=== PATIENT | female | born 1950 | race Caucasian/White ===

== ENCOUNTER 2017-07-08 05:09 | Observation (INO) | payer OTHER ==
[~2017-07-08] VITALS: Ht 157.5 cm; Wt 71.0 kg
[~2017-07-08 05:09] MED LIST: ALPR1TAB3 PO; LEVO88TA2 PO; METF500T PO
[2017-07-08] MEDS ORDERED: CHLORHEXIDINE GLUCONATE 2 % 1 PACK (2 CLOTHS) TOPICAL PRN (05:45)
[2017-07-08] MEDS ORDERED: SODIUM CHLORIDE FLUSH PRN IV FLUSH (05:45)
[2017-07-08] MEDS ORDERED: LACTATED RINGER'S 1000 ML IV PRN (05:45)
[2017-07-08] MEDS ORDERED: METOPROLOL TARTRATE 25 MG TAB PO PRN (05:45)
[2017-07-08] MEDS ORDERED: POVIDONE IODINE 5% (ANTISEPSIS KIT) 4 APPLICATIONS EACH NARE PRN (05:45)
[2017-07-08] MEDS ORDERED: HEPARIN SODIUM - SQ 10,000 UNITS/ML VIAL SQ PRN (05:45)
[2017-07-08] MEDS ORDERED: SODIUM CHLORID 0.9% 500 ML IV PRN (05:45)
[2017-07-08] MEDS ORDERED: ceFAZolin 1,000 MG/NS 100 ML IV SCH ×2 (05:45)
[2017-07-08] MEDS ORDERED: INSULIN HUMAN REGULAR 1,000 UNITS/10 ML VIAL SQ PRN (05:45)
[2017-07-08 06:03] VITALS: BP 145/65; PULSE 78; RESP 16; TEMP 98.1; O2SAT 99
[2017-07-08] MEDS ORDERED: LIDOCAINE 1%/EPINEPHrine 1:100,000 SOLN 30 ML VIAL INFIL ONE (08:13)
--- NOTE | 2017-07-08 08:56 | EKG ---
Date Performed: 07/08/2017 Time Performed: 06:12:19 PTAGE: 67 years EKG: Sinus rhythm INDETERMINATE AXIS POSSIBLE RIGHT VENTRICULAR CONDUCTION DELAY ST DEVIATION AND MODERATE T-WAVE ABNO RMALITY, CONSIDER ANTEROLATERAL ISCHEMIA ABNORMAL ECG NO PREVIOUS TRACING DOCTOR: Misael Edmondson Interpretating Date/Time 07/08/2017 08:53:12
[2017-07-08] MEDS ORDERED: SODIUM CHLORIDE FLUSH BID IV FLUSH SCH (09:00)
[2017-07-08] MEDS ORDERED: SILVER NITR/POTASSIUM NITRATE APPLICATORS TOPICAL ONE (10:49)
[2017-07-08] MEDS ORDERED: SUGAMMADEX SODIUM 200 MG/2 ML VIAL IV PUSH ONE ×2 (10:51)
[2017-07-08] MEDS: D5-1/2 NS + KCL 20 MEQ INJ 1,000 ML IV SCH ×2 (10:58→20:05)
[2017-07-08] MEDS ORDERED: diphenhydrAMINE HCL 25 MG CAP PO PRN (11:00)
[2017-07-08] MEDS ORDERED: ALPRAZolam 1 MG TAB PO PRN (11:00)
[2017-07-08] MEDS: INSULIN NovoLIN REGULAR SUPPLEMENTAL SCALE SQ SCH ×3 (11:00→20:05)
[2017-07-08] MEDS ORDERED: ONDANSETRON HCL 4 MG/2 ML VIAL IVP PRN (11:00)
[2017-07-08] MEDS ORDERED: SODIUM CHLORIDE 0.9% FLUSH 10 ML FLUSH IV FLUSH PRN (11:00)
[2017-07-08] MEDS ORDERED: DO NOT ADM ANY ANTICOAGULANT DRUGS PRN (11:19)
[2017-07-08] MEDS ORDERED: fentaNYL CITRATE 250 MCG/5 ML AMP ONE (11:21)
[2017-07-08] MEDS ORDERED: MIDAZOLAM HCL 2 MG/2 ML VIAL ONE (11:22)
[2017-07-08] MEDS ORDERED: NORMOSOL R INJ 1,000 ML IV ONE (12:00)
[2017-07-08] MEDS ORDERED: DEXTROSE 50% IN WATER 50 ML VIAL(D50) IV PUSH PRN (12:00)
[2017-07-08] MEDS ORDERED: ONDANSETRON HCL 4 MG/2 ML VIAL IV PUSH ONE (12:00)
[2017-07-08] MEDS ORDERED: LACTATED RINGER'S 1000 ML INJ 1,000 ML IV ONE (12:00)
[2017-07-08] MEDS ORDERED: PROPOFOL 200 MG/20 ML AMP IV ONE (12:00)
[2017-07-08] MEDS: KETOROLAC TROMETHAMINE 30 MG/ML (IVP) VIAL IVP SCH ×2 (12:00→20:04)
[2017-07-08] MEDS ORDERED: PHENYLEPH/NS 1000 MCG/10 ML SYR IV ONE (12:00)
[2017-07-08] MEDS ORDERED: GLUCAGON 1 MG/ML VIAL OTHER PRN (12:00)
[2017-07-08] MEDS ORDERED: DIMETHICONE/OXYBENZONE/PADMIATE LIP BALM 4.25 GM TOPICAL ONE (13:32)
--- NOTE | 2017-07-08 16:15 | PD.ONC.PN ---
Subjective Subjective Remarks post op note pt seen in PACU awaiting a bed on [address] mild nausea, pain controlled no complaints Objective Data Date Time Temp Pulse Resp B/P Pulse Ox O2 Delivery O2 Flow Rate FiO2 07/08/17 16:00 88 10 128/61 96 Room Air 07/08/17 15:00 88 17 136/60 92 Nasal Cannula 2 07/08/17 13:30 93 17 122/57 95 Nasal Cannula 2 07/08/17 13:00 88 11 126/61 97 Nasal Cannula 2 07/08/17 12:30 88 12 132/61 96 Nasal Cannula 2 07/08/17 12:00 88 11 128/59 95 Nasal Cannula 2 07/08/17 11:45 86 12 134/65 95 Nasal Cannula 2 07/08/17 11:30 92 12 135/63 95 Nasal Cannula 2 07/08/17 11:15 97.8 97 14 145/70 97 Nasal Cannula 4 07/08/17 06:03 98.1 78 16 145/65 99 07/08/17 07/08/17 07/08/17 07:00 15:00 23:00 Intake Total 1700 ml Output Total 350 ml Balance 1350 ml Laboratory Results Laboratory Tests Test 07/08/17 06:15 Blood Type B POSITIVE Antibody Screen NEGATIVE Blood Bank Comment Administered Medications Medications (Trade) Dose Ordered Sig/Harris Route PRN Reason Start Time Stop Time Status Last Admin Dose Admin Potassium Chloride/Dextrose/ Sod Cl (D5-1/2 NS + KCl 20 Meq Inj) 1,000 ml @ 75 mls/hr [id number] IV 07/08/17 10:58 07/08/17 10:58 Ketorolac Tromethamine (Toradol Inj) 15 mg Q6HR IVP 07/08/17 12:00 07/09/17 06:01 07/08/17 12:00 Objective Remarks GENERAL: Well-nourished, well-developed patient. SKIN: Warm and dry. HEAD: Normocephalic. EYES: No scleral icterus. No injection or drainage. CARDIOVASCULAR: Regular rate and rhythm without murmurs. RESPIRATORY: Breath sounds equal bilaterally. No accessory muscle use. GASTROINTESTINAL: Abdomen soft, SS are c/d/i EXTREMITIES: TEDs MUSCULOSKELETAL: Adequate muscle tone. PSYCHIATRIC: Appropriate mood and affect; insight and judgment normal. Assessment/Plan Problem List: (1) Post-operative state Plan: s/p RA lap hyst with BSO and lymph node dissection Pt to be transferred to [facility] post op orders in chart ADAT can get OOB to chair eder Singleton to straight drain D/C Areli in AM anticipate discharge home in morning Chris Miller Jul 08, 2017 16:15
[2017-07-08 19:00] VITALS: BP 152/69; PULSE 91; RESP 16; TEMP 99.9; O2SAT 97
[2017-07-08] MEDS: SODIUM CHLORIDE 0.9% FLUSH 10 ML FLUSH IV FLUSH SCH (20:05)
[2017-07-08 21:05] VITALS: O2SAT 97
[2017-07-09] VITALS: BP 149/63; PULSE 93; RESP 16; TEMP 99.1; O2SAT 98
[2017-07-09] MEDS: KETOROLAC TROMETHAMINE 30 MG/ML (IVP) VIAL IVP SCH ×2 (00:43→06:07)
[2017-07-09 04:00] VITALS: BP 153/70; PULSE 86; RESP 16; TEMP 98.6; O2SAT 98
[2017-07-09] MEDS ORDERED: LEVOTHYROXINE SODIUM 88 MCG TAB PO SCH (06:00)
[2017-07-09] MEDS: INSULIN NovoLIN REGULAR SUPPLEMENTAL SCALE SQ SCH (06:07)
[2017-07-09 08:00] VITALS: BP 140/64; PULSE 88; RESP 16; TEMP 98.8; O2SAT 98
[2017-07-09] MEDS: SODIUM CHLORIDE 0.9% FLUSH 10 ML FLUSH IV FLUSH SCH (09:00)
[2017-07-09 09:09] LABS: AUTOMATED NEUTROPHIL # 8.4 TH/MM3 (1.8-7.7); BASOPHIL % 0.2 % (0.0-2.0); HEMATOCRIT 37.2 % (35.0-46.0); HEMO FLAGS DIFF FINAL; LYMPH % 10.2 % (9.0-44.0); MEAN CELL VOLUME 93.4 FL (80.0-100.0); MEAN CORPUSCULAR HEMOGLOBIN 32.4 PG (27.0-34.0); MEAN CORPUSCULAR HGB CONC 34.7 % (32.0-36.0); MONO % 6.3 % (0.0-8.0); NEUT % 83.3 % (16.0-70.0); PLATELET COUNT 206 TH/MM3 (150-450); RED BLOOD COUNT 3.99 MIL/MM3 (4.00-5.30); RED CELL DISTRIBUTION WIDTH 13.9 % (11.6-17.2); WHITE BLOOD COUNT 10.1 TH/MM3 (4.0-11.0)
[2017-07-09 09:25] LABS: BICARBONATE 24.8 MEQ/L (21.0-32.0); POTASSIUM 3.2 MEQ/L (3.5-5.1)
[2017-07-09 11:15] VITALS: BP 151/74; PULSE 90; RESP 20; TEMP 98.3; O2SAT 97
--- NOTE | 2017-07-09 15:26 | MP ---
cc: GUILLE SALINAS M.D., KELLY L. MD RAO, SURYA P. MD PECK, REBECCA (. M.D. DATE OF SURGERY: 07/08/2017 PREOPERATIVE DIAGNOSIS Endometrial cancer. POSTOPERATIVE DIAGNOSIS Endometrial cancer. PROCEDURE Robotic-assisted laparoscopic hysterectomy, bilateral salpingo-oophorectomy, bilateral pelvic lymphadenectomy. SURGEON Amy Wolf. 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 ANESTHESIA General endotracheal. ESTIMATED BLOOD LOSS 100 cc. IV FLUIDS 1600 cc. URINE OUTPUT 250 cc. HISTORY A 67-year-old female with postmenopausal bleeding. Imaging showed the endometrial stripe to be just slightly prominent at 6 mm. She underwent sampling which was interpreted initially as an intermediate grade adenocarcinoma felt to be high-grade by the [place] pathologist. She was counseled regarding these findings and was in favor of surgical management, favor of a minimally invasive approach and presents now for that endeavor. She is seen in the pre-op holding area where updated pathology review is discussed with her. Recommendations and plan of surgical care were reviewed. She expressed good understanding and agreed to move forward with surgery. FINDINGS The uterus sounded to 7.5 cm symmetrically and grossly normal. Tubes and ovaries grossly appeared normal. The left tube and ovary were affixed to the left pelvic sidewall. There were adhesions in the cul-de-sac and the colon was adherent overlying the left adnexa. Changes suggesting prior diverticulitis and some diverticulum were noted. No active inflammation. The right tube and ovary had minimal adhesions. There were several prominent lymph nodes in both the right and left pelvis. There were no appreciably prominent lymph nodes in the paraaortic region. The peritoneal surfaces were smooth. The liver and diaphragm edges, large and small bowel mesentery grossly appeared normal without peritoneal implants. The preliminary pathology of the uterus showed a 2 cm tumor that invaded more than 50% depth of the myometrium with an estimated 8 mm invasion out of a 12 mm myometrium. There was no endocervical extension. It is noted that she had markedly redundant large and small bowel that contributed some challenges with visibility and access, although the bowel itself otherwise looked reasonably normal. STATEMENT OF COMPLEXITY/MODIFIER The complexly of this case was increased due to dense pelvic adhesions against the left pelvic sidewall requiring significant additional time in taking down adhesions to restore normal anatomy and accomplish surgical objectives. Modifier should be applied accordingly. DETAILS OF PROCEDURE She was taken to the operating room and was placed in the dorsal lithotomy position. After general endotracheal anesthesia was administered a timeout was undertaken. She was identified by sight recognition and hospital ID bramart, and the proposed procedure was reviewed and confirmed. She was carefully positioned in padded Derik stirrups. Her arms were padded and secured to the sides. She was further secured to the operating table with eggcrate padding and tape in an across chest over the shoulder fashion. All sites were noted to be properly aligned with no malalignments or pressure points. She was prepped and draped in sterile fashion, placed in lithotomy position with care being taken with minimal mobility on her hips, especially her right hip given prior surgery. The cervix was grasped. The uterine cavity sounded. The cervix was dilated and a standard VCare manipulator was inserted and secured in the usual fashion. A Singleton catheter was placed in the bladder. She was returned to low lithotomy position. A change of sterile gloves was undertaken. We confirmed an orogastric tube was in the stomach on suction. With manual elevation of the abdominal wall and direct laparoscopic visualization, a 5 mm cannula was placed in the left upper quadrant. Carbon dioxide gas was insufflated and an atraumatic entry was confirmed. Under laparoscopic visualization a 12 mm cannula was placed in the midline above the umbilicus. An 8 mm cannula was placed in the right upper quadrant and left lateral quadrant and the original 5 exchanged for an 8 mm cannula. She was placed in steep Trendelenburg position. Peritoneal washings were obtained for cytology. The anatomy was surveyed with findings as described above. Attempts were made to fold the small bowel back on its mesenteric root. Even with steep Trendelenburg and maximum anesthesia the bowel kept wanting to return toward the pelvis. Three Ray-Pili sponges were placed around the root of the small bowel mesentery to try to uphold in position. The robotic system was brought into the operative field and attached in the usual fashion. Monopolar scissors, fenestrated bipolar forceps and ProGrasp manipulators were placed in arms #1, 2 and 3 respectively and I took my place at the surgeon's console. Some adhesions were taken down on the right side to further mobilize the ileocecal region as it was adherent somewhat below the level of the pelvic brim. Mobilization allowed that to be elevated above the pelvic brim to gain better access to the right pelvic sidewall. The right round ligament was isolated, cauterized and transected. The anterior and posterior leafs of the broad ligament were opened. The right ureter was identified. The right infundibulopelvic ligament was isolated. The infundibulopelvic ligament was isolated to the level of the pelvic brim where it was cauterized and transected. The posterior peritoneum was opened along the right side of the uterus and cervix and the right vesicouterine peritoneum was dissected off the lower uterine segment and cervix. The right uterine vessels were skeletonized, cauterized and transected as were the cardinal, paracervical and uterosacral ligaments. Attention was directed toward the right pelvis. The paravesical obturator and pararectal spaces were opened. A few prominent lymph nodes were noted along the external iliac artery ventrally and then in the obturator space and each of the prominent lymph nodes were isolated and removed with bipolar cautery and sharp dissection. Careful inspection revealed no remaining abnormal-appearing lymph nodes. This approach was used to try to maximize diagnostic accuracy and minimize potential morbidity from lymph node dissection. Some of the abnormal-appearing lymphatic tissue was sent for frozen section analysis and was determined to be benign. Attention was directed toward the left side. Significant adhesiolysis was required to mobilize the colon from its adherence to the left pelvic sidewall and from its attachments overlying the left adnexa. Retroperitoneal dissection was carried out lateral to the colon, taken up above the pelvic brim, and then sharp dissection was used medially to free the colon from its attachments to the adnexa and the adjacent peritoneum and cul-de-sac adhesions were taken down with sharp dissection. The left round ligament was isolated, cauterized and transected. Further dissection of the retroperitoneum identified the left ureter. The left infundibulopelvic ligament was isolated. The intervening peritoneum was opened. The infundibulopelvic ligament was isolated to the level of the pelvic brim where it was cauterized and transected. The posterior peritoneum was opened along the left side of the uterus and cervix. The left vesicouterine peritoneum was dissected off the lower uterine segment and cervix. The left uterine vessels were skeletonized, cauterized and transected as were the cardinal, paracervical and uterosacral ligaments. Attention was directed toward the left side where the left paravesical, pararectal and obturator spaces were opened. Lymphatics were inspected. There were two prominent lymph nodes, or groups of lymph nodes, and the obturator space both distally and proximally in the region of the bifurcation of the iliac vessels. These were isolated, removed with bipolar cautery and sharp dissection circumferentially and a smaller external iliac lymph node was isolated and removed. Inspection of the lymphatic bed revealed no remaining visible or detectable prominent lymph nodes. Attention was directed to the paraaortic region. Visibility was very difficult despite maximum Trendelenburg, maximum anesthesia and packing with Ray-Tecs and retractors. Multiple loops of small bowel and the ileocecum constantly returned to this anatomical area such that continued safe exposure was not possible. However, inspection of this region did not reveal any detectable prominent lymph nodes. It was felt that attempted paraaortic dissection could be associated with morbidity that exceeded benefit. Attention was redirected to the pelvis. Colpotomy was performed following the cap of the VCare the cervix from the upper vagina and the specimen was withdrawn transvaginally which included uterus and cervix, tubes and ovaries. A pneumo-occluder balloon was placed in the vagina to maintain pneumoperitoneum. An EndoCatch bag was introduced to capture the lymph nodes that had been removed. They were placed on a Ray-Pili sponge and the lymph nodes and Ray-Pili sponge were captured in the EndoCatch and delivered transvaginally. The lymphatic tissue was then removed, and sent for permanent histopathologic analysis. Instruments 1 and 3 were exchanged for needle drivers as 0 Vicryl suture was introduced. The vaginal cuff was closed starting at the left corner full-thickness closure, incorporating the posterior peritoneum and uterosacral ligament and tied via instrument tie. The closure was held on countertraction as a running continuous full-thickness closure was carried across the vaginal apex to the contralateral corner where it was similarly affixed, secured and tied via instrument tie. The needle was cut and removed. The bladder was inspected and noted to be intact. There was a good margin between the edge of the bladder and the vaginal cuff suture line. There was good peristalsis of ureters. Neurovascular structures were intact. Small oozing in the right pelvic lymph node dissection was addressed with cautery and then a small piece of Surgicel. The pelvis and lymph node dissections were irrigated and then hemostatic Ivet powder was placed in the lymph node dissection beds and across the vaginal cuff and all sites were completely hemostatic. It was felt that all reasonable surgical objectives had been completed so the robotic instruments were removed. The robotic system was disengaged from the operative field. I reentered the bedside under sterile condition. Each of the two remaining Ray-Pili sponges were withdrawn through the 12 mm cannula. They are inspected and noted to be removed in their entirety. Visual inspection confirmed there were no remaining foreign objects in the peritoneal cavity. Preliminary counts were correct. A 12 mm fascial defect was closed with interrupted 0 Vicryl suture using a needle pass apparatus. The sutures were tied securely which rendered the fascia completely airtight and hemostatic. The remaining cannulas were withdrawn. Carbon dioxide gas was removed. 3-0 Vicryl subcutaneous and 3-0 Vicryl subcuticular were used to close the skin incisions. A pelvic exam was performed. The vaginal cuff was well-supported and hemostatic. There were no vaginal lacerations. Slight irritation at the introitus was rendered hemostatic with silver nitrate. There were no remaining foreign objects in the vagina. Final counts were correct. MD ANTONIA Monique/LUIS FERNANDO /6:52 AM /2:47 PM
--- NOTE | 2017-07-11 19:00 | MD ---
cc: GUILLE SALINAS,LUDIVINA WATERS,DEVENDRA CASTILLO,SREEKANTH Pena MD ADMISSION DATE: 07/08/2017 DISCHARGE DATE: 07/09/2017 PROCEDURE PERFORMED: 07/08/2017 robotic-assisted laparoscopic hysterectomy, bilateral salpingo-oophorectomy, bilateral pelvic lymphadenectomy. DIAGNOSIS: Endometrial cancer. HOSPITAL COURSE: She did well in the early postop period tolerating oral intake, hemodynamically stable. In's and out's were 3331/2000. Labs pending. Vitals afebrile, pulse 86-91, respirations 16, blood pressure 134-153 /63-70, O2 saturations greater than equal to 97%. Alert and oriented x3. Lungs: Clear except for mild basilar rales. Cardiovascular: Regular rate and rhythm. The incisions are clean and dry. Mild ecchymosis around the mid and left upper incisions. Abdomen: Soft. 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 Extremities: Nontender. ASSESSMENT: Postop day #1 doing well in early postop. FINDINGS AT SURGERY: Preliminary pathology and steps taken were reviewed. Activities and restrictions were discussed. Questions were answered. She expressed good understanding. PLAN: Anticipate discharge to home. She is to contact our office to schedule follow up in two weeks. She is to resume prior medications and will have a prescription for tramadol for pain as needed. She can also supplement or use [id number] medication. She is to contact our office should she have any questions or problems between now and the time of scheduled followup. MD ANTONIA Monique/ABDIEL /6:48 AM /6:54 PM
== END 2017-07-09 12:04 | disposition home or self-care (01) ==
LOC: HSDC 05:09 → HSDI 11:01 → HOCA 18:52
PROVIDERS: ADMIT Obstetrics & Gynecology Gynecologic Oncology; ATTEND Obstetrics & Gynecology Gynecologic Oncology
PROC: 0UTC7ZZ Resection of Cervix, Via Natural or Artificial Opening (ICD-10-PCS; 2017-07-08)
PROC: 0UT2FZZ Resection of Bilateral Ovaries, Via Natural or Artificial Opening With Percutaneous Endoscopic Assistance (ICD-10-PCS; 2017-07-08)
PROC: 0UT7FZZ Resection of Bilateral Fallopian Tubes, Via Natural or Artificial Opening With Percutaneous Endoscopic Assistance (ICD-10-PCS; 2017-07-08)
PROC: 8E0W8CZ Robotic Assisted Procedure of Trunk Region, Via Natural or Artificial Opening Endoscopic (ICD-10-PCS; 2017-07-08)
PROC: 0UT9FZZ Resection of Uterus, Via Natural or Artificial Opening With Percutaneous Endoscopic Assistance (ICD-10-PCS; principal; 2017-07-08 07:09)
DX: C54.1 Malignant neoplasm of endometrium (principal); N73.6 Female pelvic peritoneal adhesions (postinfective); N95.0 Postmenopausal bleeding; R94.31 Abnormal electrocardiogram [ECG] [EKG]
CPT/HCPCS: 00840; 58552; 80048; 82948; 85025; 86850; 86900; 86901; 88112; 88307; 88309; 88331; 93005; 96361; 96374; 96376; G0378; J0690; J1644; J1885; J2250; J2370; J2405; J3010; J3480; J7120; S2900; 88305